=== PATIENT | male | born 1970 | race Caucasian/White ===

== ENCOUNTER 2024-12-27 11:41 | Outpatient (AMB) | payer OTHER, SELFPAY ==
--- NOTE | 2024-12-27 12:37 | AM.OFFWIN_ITS ---
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 Patient Tobacco Use Status: Current everyday Tobacco user Allergies No Known Allergies Allergy (Verified 12/27/24 12:51) Do you need a note to return to daycare/school/sports/work: No HPI HPI Comments History of Present Illness Details This is a 54-year-old male with no stated past medical history presenting with his mother for evaluation of urinary frequency and right-sided back pain that he has had for the past 1 week. Patient denies having any dysuria, penile discharge, nausea, vomiting, fevers or chills. Patient has not taken any medication for treatment of his discomfort. PFSH Social History Patient Tobacco Use Status: Current everyday Tobacco user Review of Systems Const All systems reviewed & are unremarkable except as noted in HPI and below Denies chills and Denies fever(s) Eyes Reports no additional complaints ENT Reports no additional complaints Card Reports no additional complaints Resp Reports no additional complaints GI Reports no additional complaints Reports no additional complaints, Denies oliguria, Denies difficulty urinating, Denies dysuria and Reports urinary frequency Musc Reports no additional complaints and Reports back pain (right) Skin/Breast Reports system reviewed and no additional complaints, except as documented Neuro Reports no additional complaints Psych Reports no additional complaints Endo Reports no additional complaints Jasen/Lymph Reports no additional complaints Aller/Immun Reports no additional complaints Physical Exam Vital Signs: Last Vital Signs Temp 98.3 F 12/27/24 12:51 Pulse 61 12/27/24 12:51 BP 120/70 12/27/24 12:51 Pulse Ox 97 12/27/24 12:51 Oxygen Delivery Method Room Air 12/27/24 12:51 Const General: cooperative, comfortable, no acute distress, well developed, alert, awake and Physically active Nutritional Appearance: average body habitus Orientation/consciousness: patient oriented x3 Limitations: no limitations Cardio Rate: regular rate Rhythm: regular rhythm GI Inspection: Yes normal to inspection Palpation (GI): Soft to palpation and nontender Auscultation: normal bowel sounds General: Yes Bimanual renal exam normal bilaterally, Yes bladder normal to inspection, Yes bladder normal to palpation and Yes no CVA tenderness Back/Spine/Pelvis Other: mild right lower lumbar paraspinous tenderness, no midline tenderness, no CVAT, no sciatic notch tenderness Back: no CVA tenderness Neuro General: patient oriented x3 Psych Appearance: grossly normal Mental Status: mental status grossly normal Insight: Good insight present (Psych) Judgement: Good judgement present (Psych) Results Reviewed Results Reviewed: Urinalysis reveals nitrites and hematuria. Urine culture is pending. Assessment & Plan Assessment & Plan (1) Urinary frequency: Comment: Urinalysis is consistent with an acute urinary tract infection. Urine culture is pending at this time. Code(s): R35.0 - Frequency of micturition Plan: Increase clear fluids daily, Keflex q.6 hours x7 days. Orders: Orders Urine Culture Today R35.0 - Frequency of micturition Medications: New cephalexin 500 mg PO Q6H 28 caps 0RF Coding Level of Care Code Est Pt Level 3 (56996) Diagnoses Urinary frequency R35.0 Time Spent (min) 20
[2024-12-27 12:51] VITALS: BP 120/70; PULSE 61; TEMP 36.8; O2SAT 97
--- OUTSIDE RECORDS SUMMARY | 2024-12-27 12:55 | XMS_ITS | Clinical Summary ---
Author Organization [facility] Address [address] [place] [address] Care Team Providers Care Medicaid Collection Specialist Name Role Phone Unavailable Primary Care Provider Unavailabl e Social History Tobacco Use Types Packs/Day Years Used Date Smoking Tobacco: Never Assessed Sex and Gender Information Value Date Recorded Sex Assigned at Not on file Legal Sex Male 2:47 AM EST Gender Identity Not on file Sexual Orientation Not on file Plan of Treatment Health Maintenance Due Date Last Done Comments DTaP,Tdap,and Td Vaccines (1 - Tdap) 1989 Hepatitis B Vaccines (1 of 3 - 19+ 3-dose series) 1989 Pneumococcal Vaccine: 50+ Ye ars (1 of 1 - PCV) 2020 Zoster Vaccines (1 of 2) 2020 COVID-19 Vaccine (1 - 2023-2 5 season) 2024 Influenza Vaccine (Season Ended) 2025 HIB Vaccines Aged Out No longer eligi ble based on patient's age to complete this topic HPV Vaccines Aged Out No longer eligi ble based on patient's age to complete this topic Hepatitis A Vaccines Aged Out No long er eligible based on patient's age to complete this topic IPV Vaccines Aged Out No longer eligi ble based on patient's age to complete this topic MMR Vaccines Aged Out No longer eligi ble based on patient's age to complete this topic Meningococcal ACWY Vaccine Aged Out N o longer eligible based on patient's age to complete this topic Meningococcal B Vaccine Aged Out No l onger eligible based on patient's age to complete this topic Pneumococcal Vaccine: Pediat rics (0 to 5 Years) and At-Risk Patients (6 to 64 Years) Aged Out No longer eligible b ased on patient's age to complete this topic RSV Immunization Patients Un he 20 months Aged Out No longer eligible b ased on patient's age to complete this topic Varicella Vaccines Aged Out No longer eligible based on patient's age to complete this topic
--- OUTSIDE RECORDS SUMMARY | 2024-12-27 12:55 | XMS_ITS | Clinical Summary ---
Author Organization [facility] Address [address] [place] [address] Care Team Providers Care Senior Consultant Name Role Phone Geoff Tafoya Primary Care Provider [phone] Source Comments PLEASE NOTE, if this patient is a minor, it may be UNLAWFUL to discuss sensitive information that is contained in these records (such as FAMILY PLANNING, MENTAL HEALTH or SUBSTANCE ABUSE) with the minor patient's parent or other person without the patient's specific authorization.[facility] Allergies No known active allergies Immunizations Immunization Administration Dates Next Due PNEUMOCOCCAL CONJUGATE PCV 13 12/31/2016 TDAP 12/31/2016 Social History Tobacco Use Types Packs/Day Years Used Date Smoking Tobacco: Every Day Tobacco Cessation:Ready to Q uit: Yes Comments:pack a day Alcohol Use Standard Drinks/Week Comments No 0 (1 standard drink = 0.6 oz pur e alcohol) Social Connections Answer Date Recorded Social Connections and Isolation 0 04/03/2019 Financial Resource Strain Answer Date R ecorded Financial Resource Strain 0 2018 Stress Answer Date Recorded Stress 0 04/03/2019 Physical Activity Answer Date Recorded Physical Activity 0 04/03/2019 Food Insecurity Answer Date Recorded Food 0 04/03/2019 Transportation Needs Answer Date Record ed Transportation 0 04/03/2019 Housing Stability Answer Date Recorded Housing 0 04/03/2019 Safety and Environment Answer Date Juan rded Safety 0 04/03/2019 Utilities Answer Date Recorded Utilities 0 04/03/2019 Employment Answer Date Recorded Employment 0 04/03/2019 Sex and Gender Information Value Date Recorded Sex Assigned at Male 12/31/2016 6:34 AM PDT Legal Sex Male 12:45 PM PDT Gender Identity Male 12/31/2016 6:34 AM PDT Sexual Orientation Straight 12/31/2016 6: 34 AM PDT Last Filed Vital Signs Vital Sign Reading Time Taken Comments Blood Pressure 120/86 12/31/2016 9:31 AM EDT Pulse 72 12/31/2016 9:31 AM EDT Temperature 36.8 ??C (98.2 ??F) 12/31/2016 9:31 AM ED T Respiratory Rate 18 12/31/2016 9:31 AM EDT Oxygen Saturation - - Inhaled Oxygen Concentration - - Weight 83 kg (183 lb) 12/31/2016 9:31 AM EDT Height 170.2 cm (5' 7 ) 12/31/2016 9:31 AM EDT Body Mass Index 28.66 12/31/2016 9:31 AM EDT Plan of Treatment Health Maintenance Due Date Last Done Comments Anxiety Screening 1970 Diabetes Screening 1970 Hepatitis C Screening 1970 Lipid Screening 1970 Tobacco Cessation Counseling (#1) 1970 Tobacco Screening 1970 HIV Screening 1985 Imm-Hepatitis B (1 of 3 - 19+ 3-dose series) 0 CT Colonography 10/31/2015 Colonoscopy 10/31/2015 Colorectal Cancer Screening 10/31/2015 FIT/gFOBT 10/31/2015 Fecal DNA 10/31/2015 Flexible Sigmoidoscopy 10/31/2015 Imm-Pneumococcal (2 of 2 - PPSV23) 02/25/20172016 Annual Wellness (Adult): Indicated (All Coverage) 12/0912/31/2016 Hypertension Screening (#1) 12/31/2017 Imm-Zoster, Recombinant (1 of 2) 2020 [id number] ( season) 2024 Imm-Influenza (#1) 2024 Alcohol and Drug Screen 08/10/2024 12/31/2016 Depression Annual Screen 08/10/2024 12/31/2016 Imm-DTaP/Tdap/Td (2 - Td or Tdap) 12/31/2026 017 Insurance [employer] Care Teams Senior Consultant Relationship Specialty Start Date End Date Geoff Tafoya PA [address] [place] [address] PCP - General Internal Medicine 11/18/16
== END 2024-12-27 14:18 | disposition home or self-care (01) ==
PROVIDERS: Visit Provider Physician Assistant
DX: Z13.9 Encounter for screening, unspecified (principal); R35.0 Frequency of micturition

== ENCOUNTER 2024-12-27 11:41 | Outpatient (REF) | payer OTHER, SELFPAY ==
--- OUTSIDE RECORDS SUMMARY | 2024-12-27 16:47 | XMS_ITS | Clinical Summary ---
Author Organization [facility] Address [address] [place] [address] Care Team Providers Care Research Animal Facility Supervisor Name Role Phone Geoff Tafoya Primary Care Provider [phone] Source Comments PLEASE NOTE, if this patient [...] 12/31/2017 Imm-Zoster, Recombinant (1 of 2) 2020 [id number] ( season) 2024 Imm-Influenza (#1) 2024 Alcohol and Drug Screen 08/10/2024 12/31/2016 Depression Annual Screen 08/10/2024 12/31/2016 Imm-DTaP/Tdap/Td (2 - Td or Tdap) 12/31/2026 017 Insurance [employer] Care Teams Research Animal Facility Supervisor Relationship Specialty Start Date End Date Geoff Tafoya PA [address] [place] [address] PCP - General Internal Medicine 11/18/16
--- OUTSIDE RECORDS SUMMARY | 2024-12-27 16:47 | XMS_ITS | Clinical Summary ---
Author Organization [facility] Address [address] [place] [address] Care Team Providers Care Carton Forming Machine Operator Name Role Phone Unavailable Primary Care Provider [...]
== END 2024-12-27 11:42 | disposition home or self-care (01) ==
LOC: HO.LNP 11:41
PROVIDERS: Visit Provider Physician Assistant
DX: R35.0 Frequency of micturition (principal)
CPT/HCPCS: 81003; 87086; 87088; 87186; 99212

== ENCOUNTER 2025-07-28 09:02 | Outpatient (AMB) | payer OTHER, SELFPAY ==
--- NOTE | 2025-07-28 09:03 | A.OFFPC_ITS ---
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: No Accompanied by: Mother Allergies buprenorphine (From Suboxone) Allergy (Severe, Verified 07/28/25 09:12) Anaphylaxis naloxone (From Suboxone) Allergy (Severe, Verified 07/28/25 09:12) Anaphylaxis Medication List - Last Reconciled 07/28/25 by Soledad Rosales MD No Known Home Meds Tobacco use date assessed: 07/28/25 Dental Screening Dental Screen Date: 07/28/25 Did you have a dental visit in the last 12 months?: No Did you have a dental problem in the last 6 months where you did not have access to dental care?: Yes Was dental information given to patient?: Yes HPI HPI Comments History of Present Illness Details The patient is a 54 year old male with PMH of scoliosis, Heroin use disorder, HTN presenting to [facility] care. The patient has a history of opioid use, previously being prescribed oxycodone for pain, which was abruptly stopped multiple years ago. Following the cessation of prescribed a, he turned to street drugs and is currently using heroin to manage his pain and get through the day. He expresses a desire to stop using street drugs. Past attempts at treatment included methadone, which he discontinued due to rapid weight gain, and Suboxone, to which he reportedly had a reaction. The patient suffers from severe scoliosis, which causes him to be in constant, significant pain and to have a bent-over posture. He reports his back condition has worsened over time and feels as though it is dislocated. He is unable to stand up completely straight. His mother, who accompanied him, reports he also has anxiety. He has not seen a doctor in years. During the visit, he appeared somnolent and disheveled, which his mother attributed to poor sleep for several nights. A blood pressure reading was elevated at 190/98 mmHg. I advised the patient to go to the ED to get checked for his elevated BP and potential admission to psych unit for rehab. Despite the patient's mother was agreable to the plan, the patient was reluctant. [facility] Social History Housing: Apartment Patient Tobacco Use Status: Current everyday Tobacco user Tobacco use type: Cigarette Cigarette Packs Per Day: 1 e-Cigarette/Vaping Use: Former Use service: No Current occupational status: unemployed Hearing needs: No Vision needs: Yes Questionnaire PHQ-9 Over the last 2 weeks, how often have you been bothered by any of the following problems? 1. Little interest or pleasure in doing things: nearly every day 2. Feeling down, depressed, or hopeless: several days 3. Trouble falling or staying asleep, or sleeping too much: several days 4. Feeling tired or having little energy: several days 5. Poor appetite or overeating: not at all 6. Feeling bad about yourself - or that you are a failure or have let yourself or your family down: several days 7. Trouble concentrating on things, such as reading the newspaper or watching television: several days 8. Moving or speaking so slowly that other people could have noticed. Or the opposite - being so fidgety or restless that you have been moving around a lot more than usual: nearly every day 9. Thoughts that you would be better off or of hurting yourself in some way: not at all Total score: 11 Source: Developed by Drs. Paxton Robles, Suri Herrera, Sukhi Beasley and colleagues, with an educational aisha from [employer]. Thrive Questionnaire Date Thrive assessed: 07/28/25 I am a: Patient What is your living situation today?: I have a steady place to live Within the past 12 months, did the food you bought not last and you didn't have the money to get more?: Never true Within the past 12 months, did you worry whether your food would run out before you got money to buy more?: Never true Do you have trouble paying for medicines?: No Do you have trouble getting transportation to medical appointments?: No Do you have trouble paying your heating and electricity bill?: I choose not to answer this question Do you have trouble taking care of your child, family member or friend?: I choose not to answer this question Do you have trouble with day-to-day activities such as bathing, preparing meals, shopping, managing finances, etc.?: No Are you currently unemployed and looking for a job?: No Are you interested in more education?: No Please select the resources that you would like help with: None Currently or been in a relationship where the following occur: I choose not to answer THRIVE Score: 0 AUDIT C Alcohol Use Questionnaire (AUDIT-C) 1. How often do you have a drink containing alcohol?: Never 3. How often do you have six or more drinks on one occasion?: Never Total Score: 0 ROSAMARIA-7 AMB Questionnaire ROSAMARIA-7 Date ROSAMARIA - 7 assessed: 07/28/25 Feeling nervous, anxious, or on edge: 2 = More than half the days Not being able to stop or control worryin = Several days Worrying too much about different things: 1 = Several days Trouble relaxin = Several days Being so restless that it is hard to sit still: 0 = Not at all Becoming easily annoyed or irritable: 1 = Several days Feeling afraid as if something awful might happen: 0 = Not at all Total ROSAMARIA-7 score (0-4 normal; 5-9 mild; 10-14 moderate; 15-21 severe): 6 Source: Developed by Drs. Paxton Roblse, Suri Herrera, Sukhi Beasley and colleagues, with an educational aisha from [employer]. Review of Systems Const Details: Not completed as the patient was somnolent. Physical exam (Primary Care) Vital Signs: Last Vital Signs Temp 98.1 F 07/28/25 09:10 Pulse 86 07/28/25 09:10 Resp 20 07/28/25 09:10 BP 190/98 H 07/28/25 09:10 Pulse Ox 93 07/28/25 09:10 Oxygen Delivery Method Room Air 07/28/25 09:10 BMI result Body Mass Index 24.5 Tobacco/Smoking Status: Tobacco use Status Tobacco use date assessed 07/28/25 07/28/25 09:05 Patient Tobacco Use Status Current everyday Tobacco 07/28/25 09:05 Tobacco use type Cigarette 07/28/25 09:05 e-Cigarette/Vaping Use Former Use 07/28/25 09:17 PHQ-9: PHQ-9 Score PHQ-9: Total score 11 07/28/25 09:17 Thrive Assessment: Date of Thrive Assessment Date Thrive assessed 07/28/25 07/28/25 09:05 Currently or been in a relationship where the following occur: I choose not to answer Const Other: Pertinent findings are in BOLD GENERAL APPEARANCE: Somnolent, disheveled, falling asleep during exam. EYES lids/conjunctiva normal. EARS/NOSE/THROAT Mucous membranes moist, nares normal, lips/teeth normal uvula midline without oral pharyngeal erythema, exudate or swelling TMs normal bilaterally. No lymphangitis/lymphedema. HEAD/NECK normocephalic atraumatic, no facial trauma, neck is supple. RESPIRATORY respiratory effort normal, speaks in full sentences, no tripod position, no accessory muscle use. Lungs clear to auscultation without rhonchi, wheezes, rales CARDIAC Regular rate and rhythm, no edema. ABDOMINAL Soft, ND/NT. No evidence of fluid wave. No pulsatile masses on exam, rebound tenderness, Pedersen sign or pain over Mcburney's point. MUSCLES/EXTREMITIES Severe Kyphosis, and scoliosis, the patient unable to stand straight due to pain. SKIN Warm, pink and dry. No rashes, dermatoses, petechiae or lesions. NEUROLOGICAL Speech is clear and appropriate. Normal level of consciousness. Gait and coordination are normal. 5/5 strength in all extremities. PSYCH Normal mood and affect. Judgement/competence is appropriate Coding Level of Care Code New Pt Level 4 (14005) Diagnoses Heroin addiction F11.20 Encounter to establish care Z76.89 HTN (hypertension) I10 Kyphosis M40.209 Time Spent (min) 40 Assessment & Plan Assessment & Plan (1) Heroin addiction: Code(s): F11.20 - Opioid dependence, uncomplicated Category: Medical Plan: - The primary focus of the visit is the patient's heroin use, which is a significant safety concern. - Restarting prescription opioids like oxycodone is contraindicated at this time due to high tolerance and risk of overdose when combined with illicit substances. - An urgent referral will be placed for the patient to be seen by an addiction medicine specialist. - The patient's mother was provided with the contact information for the [facility] to schedule this appointment. - The possibility of inpatient rehabilitation was discussed as a potential next step, to be determined by the addiction medicine specialist. - Advised seeking care at the emergency department if the patient's somnolence persists. Patient was reluctant. (2) Encounter to establish care: Code(s): Z76.89 - Persons encountering health services in other specified circumstances Category: Medical Plan: Today's visit was focused on the patient's heroin addiction. We will follow-up with the patinet in 4 weeks to address the rest of his symptoms and concerns. (3) HTN (hypertension): Code(s): I10 - Essential (primary) hypertension Category: Medical Plan: - The patient's blood pressure was significantly elevated at 190/98 mmHg. - Management of hypertension and other medical issues will be deferred to a future visit, with the immediate priority being the management of his opioid addiction. - Advised the patient to go to the ED for evaluation of his HTN and for potential admission to rehab. However the patient declined. (4) Kyphosis: Code(s): M40.209 - Unspecified kyphosis, site unspecified Category: Medical Plan: - The patient's severe chronic back pain is acknowledged as a significant issue, likely driving his substance use. - A comprehensive pain management plan will be deferred until the substance use disorder is addressed and the patient is no longer using heroin. - For interim pain relief, the use of non-addictive medications such as Tylenol, ibuprofen, or topical creams like Voltaren was suggested. - Future pain management options discussed include physical therapy, acupuncture, injections, and a possible surgical evaluation once he is stable. Plan I discussed with the patient and his mother that the most critical issue is his active heroin use, which must be addressed before we can safely manage his other health problems. I explained that prescribing pain medications like oxycodone is not a safe option at this time due to his high tolerance and the extreme risk of overdose when combined with heroin. I provided an urgent referral to an addiction medicine specialist and gave them the contact information for the [facility]. I explained that once he has been evaluated and is stable from a substance use perspective, we can explore other pain management options like physical therapy, injections, or topical medications. I advised that should his condition worsen or if he continues to be excessively somnolent, they should go to the emergency department, as this could be the quickest path to getting him into an inpatient rehab program. I spoke directly with the patient to ensure he understood the plan and confirmed his willingness to get better, emphasizing that this is a necessary process to clear the heroin from his system so his pain can be addressed properly. A follow-up appointment in one month was scheduled. Orders: Referrals Addiction Medicine Referral F11.20 - Opioid dependence, uncomplicated, M41.9 - Scoliosis, unspecified
[2025-07-28 09:10] VITALS: BP 190/98; PULSE 86; RESP 20; TEMP 36.7; O2SAT 93; BMI 24.5
--- OUTSIDE RECORDS SUMMARY | 2025-07-28 09:27 | XMS_ITS | Clinical Summary ---
Author Organization [facility] Address [address] [place] [address] Care Team Providers Care Surveyor Helper Rod Name Role Phone Unavailable Primary Care Provider [...] 2020 Zoster Vaccines (1 of 2) 2020 Depression Screening 08/10/2024 COVID-19 Vaccine (1 - 2024-2 6 season) 2025 Influenza Vaccine (#1) 2025 RSV Immunization Adult Patie nts (1 - 1-dose 75+ series) 2045 HIB Vaccines Aged Out No longer eligi [...]
== END 2025-07-28 10:03 | disposition home or self-care (01) ==
PROVIDERS: PCP Internal Medicine; Visit Provider Internal Medicine
DX: F11.20 Opioid dependence, uncomplicated (principal); Z76.89 Persons encountering health services in other specified circumstances; I10 Essential (primary) hypertension; M40.209 Unspecified kyphosis, site unspecified

== ENCOUNTER → 2025-07-28 09:02 | Outpatient (BNVA) | payer OTHER, SELFPAY | PROVIDERS: Visit Provider Internal Medicine | DX: Z76.89 Persons encountering health services in other specified circumstances (principal); I10 Essential (primary) hypertension; F11.20 Opioid dependence, uncomplicated; M40.209 Unspecified kyphosis, site unspecified; Z13.31 Encounter for screening for depression; Z13.39 Encounter for screening examination for other mental health and behavioral disorders | CPT/HCPCS: 96127; 99202 ==